=== PATIENT | female | born 1945 | race Caucasian/White ===

== ENCOUNTER 2017-06-29 18:22 | Inpatient (IN) ==
--- OUTSIDE RECORDS SUMMARY | 2017-06-29 18:29 | External Medical Summary | Continuity of Care Document ---
:1945 Demographics Phone Unavailable Preferred Language Unknown Marital Status Unknown Gnosticism Affiliation Unknown Race Unknown Ethnic Group Unknown Author Organization [facility] Allergies There is no data. Medications There is no data. Problems There is no data. Procedures There is no data. Results There is no data. Encounters ACCT No. Visit Discharge Status Pt. Type Provider Facility Loc./Unit Complaint Date/Time [id number] 08/25/2016 [facility] Unknown [id number] 08:17:00 [id number] 06/05/2014 [facility] Unknown [id number] 08:27:00 [id number] 05/22/2013 [facility] Unknown 1111 09:15:00
--- OUTSIDE RECORDS SUMMARY | 2017-06-29 18:29 | External Medical Summary | CCD ---
:1945 Author Name LILYSENDYNICOLLE Address [address], [place] [id number] Care Team Providers Name Role Phone JOSÉ LE Attending Physician Unavailable Vital Signs Unknown or Not Available. Allergies Unknown or Not Available. Procedures Unknown or Not Available. History of Immunizations Unknown or Not Available. Problems Unknown or Not Available. Results Unknown or Not Available. Active Medications Unknown or Not Available. Medications Administered During Visit Unknown or Not Available. Encounters Unknown or Not Available. Social History Smoking Status Code Start Date End Date Current every day [id number] smoker Patient Decision Aids Unknown or Not Available. Discharge Instructions You were admitted to [facility] on 08/11/2016 09:06 You were discharged from [facility] on 08/11/2016 09:06 Should you have any questions prior to discharge, please contact a member of your healthcare team. If you have left the hospital and have any questions, please contact your primary care physician. Chief Complaint and Reason For Visit Chief Complaint Date of Onset MRI SPINE CERV/ LUMBAR Function Status Unknown or Not Available. Plan of Care Unknown or Not Available. Referral/Transition of Care Unknown or Not Available.
[2017-06-29 18:37] VITALS: BMI 29.7
--- NOTE | 2017-06-29 18:38 | History & Physical Report ---
History of Present Illness Date: 06/29/17 Chief complaint: pneumonia HPI: Judit Kimball was accepted in a transfer from [facility] for CAP, COPD exacerbation. She was hospitalized there from 06/26-06/29. CXR showed opacity and collapse in the right base and possibly RML. She was treated with albuterol, pulmicort, IV levaquin x1 day, IV azithro, IV solu-medrol, doxycycline. An abdominal x-ray was unremarkable. A PICC line was inserted into her left upper arm. BC NGTD. On 06/29/17, Na was 136, K 3.6, CO2 27, BUN 16, Cr 0.8, WBC 17.6, hgb 10.2, hct 29, plt 292, d-dimer normal, TSH 0.32, UA neg, H. pylori screen neg. In May, B12 was 751, TSH 1.78. Judit started to feel sick with soreness on Wednesday06/22/17, then the next day she felt achy, fatigued, and thought she had the flu. She doesn't think she had a fever. She was coughing up ugly-looking phlegm. She denies sinus drainage/ congestion. She didn't have a sore throat initially but after breathing treatments it became sore. She denies feeling short of breath or having chest pain or palpitations. She does not use oxygen at home but was started on oxygen in [place]. No dizziness or syncope. She denies leg swelling. Her appetite has been decreased and on Wednesday she had "black coming out of my mouth and my rear" but hasn't had any hematemesis since then. She becomes nauseated with the smell of food. She had a small formed black-colored stool prior to leaving [place]. No problems urinating. She was transferred to [facility] for ongoing care. Review of Systems All systems PM: 10-point ROS was reviewed, no additional remarkable complaints except - Constitutional Constitutional: Present: as per HPI - EENMT Eyes: Present: requires corrective lenses. Absent: change in vision Nose: Present: as per HPI. Absent: allergies Mouth/Throat: Present: as per HPI. Absent: changes in swallowing - Cardiovascular Cardiovascular: Present: as per HPI Vascular: Absent: pedal edema - Respiratory Respiratory: Present: as per HPI - Gastrointestinal Gastrointestinal: Present: as per HPI - Genitourinary Genitourinary: Present: as per HPI - Musculoskeletal Musculoskeletal: Present: as per HPI, back pain - Integumentary/Breasts Integumentary: Absent: rash, wounds - Neurological Neurological: Present: as per HPI, headache(s) (only when neck is painful), numbness (hands/legs). 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 Carpal tunnel repair 1989 Family History: Mother of a massive heart attack at age 59. Judit doesn't know her father. Brother has COPD. Son & daughter are healthy. - Social History Smoking status: Former smoker Packs per day: 1 Packs-years: 44 Quit date: 08/12/15 Substance use type: does not use Alcohol intake frequency: does not drink Household members: spouse (Will - ), other (dog) Current occupational status: retired Previous occupational history: Janitorial Social history: PCP - Dr. Monroe Neuro - Dr. Kala [place] Exam - Constitutional Present: no acute distress, well nourished, well developed - Routine HEENT Exam Head: Present: normocephalic Eye: Present: PERRL. Absent: conjunctival icterus, scleral injection ENT: Present: mucous membranes dry, oropharynx clear - Routine Neck Exam Present: supple. Absent: lymphadenopathy - Routine Respiratory Exam Present: decreased breath sounds (RLL) - Routine Cardiovascular Exam Present: RRR, S1, S2 - Routine Abdominal Exam Present: soft, normoactive bowel sounds, non tender - Routine Extremities Exam Present: no edema, pulses intact - Routine Skin Exam Present: dry, warm - Routine Neurological Exam Present: alert, oriented X3, CN II-XII intact, normal speech - Routine Psychiatric Exam Present: normal affect, normal thought process, cooperative Assessment and Plan (1) CAP (community acquired pneumonia) Current visit: Yes Status: Acute Assessment and Plan: IMPRESSION CAP COPD exacerbation Upper/lower GI bleed Anemia Neck and back pain, chronic, dependent on Tylenol #3 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 CAP, COPD -Rocephin + azithro -DuoNeb -Prednisone 40 mg daily x 5 days -O2 as needed -CBC and CXR in am -leukocytosis in [place] - 17.6 GI bleed -check stool for occult blood -trend H&H; hgb was 10.2 on day of transfer to [facility] -consider surg consult (never had colonoscopy before) -risks: tobacco hx (denies ASA, ibu, EtOH) Chronic pain/neuropathy -oxycodone PRN pain -May need PT/OT consult Code status: full code PCP: Dr. Monroe Discussed with Dr. Palafox. Home meds have not been reconciled or ordered at the time of this H&P GI Prophylaxis: Protonix Resuscitation Status: Full Code - Physician Narrative Narrative: S: Pt reports she feels better then when she first came into the hospital. Reports some sob but denies any cp. Fever at OSH this am. O: Lungs: CTAB without wheezes Cards: RRR without murmurs A/P: Pt seems to be stable clinically. Will change abx coverage to more appropriate CAP coverage. Will add steroids to treat copd exacerbation. Unclear UGI bleed hx but labs and vitals stable. Physician at OSH repoted Hgb has been stable for multiple days. Will do FOBT. Date: 06/29/17 Time: 1833 Hospital Course Summary Disclaimer: The visit summary below is not to be considered part of the above Progress Note. Hospital Course: 06/29/17 19:13 Admitted as transfer from [place]. Dx: CAP, COPD exac, hematemesis and melena. Rocephin and zithromax were started; DuoNeb + Pulmicort ordered. Requiring O2 on admission. Monitor labs, respiratory status closely.
[2017-06-29] MEDS ORDERED: ONDANSETRON 4 MG/2 ML INJECTION IVP PRN (19:06)
[2017-06-29] MEDS ORDERED: Oxycodone *IR* 15 MG TABLET PO PRN (19:07)
[2017-06-29] MEDS ORDERED: AZITHROMYCIN IV 500 MG in NS 250ml 250 ML IV SCH (19:15)
[2017-06-29] MEDS ORDERED: NS FLUSH BAG 500ml IV PRN (19:51)
[2017-06-29] MEDS: SALINE FLUSH 10ml SYRINGE IV PRN ×2 (20:22→20:54)
[2017-06-29] MEDS: CEFTRIAXONE 1 G in NS 100 ML IV SCH (20:22)
[2017-06-29] MEDS: ALBUTEROL/IPRATROPIUM 2.5mg-0.5mg/3ml NEB AEROSOL SCH (20:40)
[2017-06-30] MEDS: ALBUTEROL/IPRATROPIUM 2.5mg-0.5mg/3ml NEB AEROSOL SCH ×4 (03:14→19:15)
[2017-06-30] MEDS: SALINE FLUSH 10ml SYRINGE IV PRN (04:28)
[2017-06-30] MEDS: AZITHROMYCIN 250 MG TABLET PO SCH (06:23)
[2017-06-30] MEDS ORDERED: PredniSONE 20 MG TABLET PO SCH (08:00)
[2017-06-30] MEDS: PANTOPRAZOLE 40 MG INJECTION IVP SCH (08:54)
[2017-06-30] MEDS ORDERED: PNEUMOCOCCAL 13 VACCINE 0.5ml INJECTION IM ONE (09:00)
--- NOTE | 2017-06-30 09:16 | XRay Report ---
Indication: RLL pneumonia PROCEDURE: XR chest 1V: Encounter: Initial Comparison: None Findings: Airspace consolidation in the right lower lobe with a small right effusion. Trace left effusion. Upper lung crain are clear. No pneumothorax. Left PICC line in place with the tip projecting over the lower SVC. Overlying monitoring leads. Heart size and mediastinal contours are within normal limits. Pulmonary vascularity appears normal. Impression: Right lower lobe pneumonia or aspiration with associated effusion. .
[2017-06-30] MEDS: BUDESONIDE INH.SOLN 0.5mg/2ml NEB AEROSOL SCH ×2 (09:20→19:00)
[2017-06-30] MEDS ORDERED: Oxycodone *IR* 5 MG TABLET PO PRN (10:21)
[2017-06-30] MEDS ORDERED: PNEUMOCOCCAL VAC ADMIN CHARGE INJ ONE (10:21)
--- NOTE | 2017-06-30 10:34 | CT Scan Report ---
Indication: pna not improving PROCEDURE: CT chest wo con: Encounter: Initial Comparison: Chest x-ray from yesterday Technique: Axial CT images were performed through the chest without intravenous contrast. Coronal and sagittal two-dimensional reformats. Automated Exposure Control and Iterative Reconstruction dose reducing techniques were utilized. Findings: Moderate emphysema. Dense consolidation of the right lower lobe with air bronchograms and bronchiectasis. Trace atelectasis in the dependent left lower lobe. No pneumothorax. No discrete pulmonary nodules or masses. Small right pleural effusion. The central airways show evidence of an endobronchial lesion occluding the right lower lobe bronchus just below the take off of the bronchus intermedius on axial image #29. This extends over a segment of approximately 1.4 cm craniocaudally measured on the sagittal plane reconstructions. No axillary adenopathy. There are enlarged right paratracheal lymph nodes. [employer] Helper node on image #21 measures 1.2 cm in short axis. Additional node on image #28 measuring 1.2 cm in short axis. Heart size is normal. No pericardial effusion. Left-sided PICC line in place with the tip terminating in the lower SVC. The upper abdomen shows no acute findings. No lytic or blastic osseous lesions appreciated. Impression: Endobronchial lesion occluding the right lower lobe bronchi with postobstructive atelectasis and pneumonia. There is associated small right effusion. A neoplastic etiology is suspected given the degree of bronchiectasis present this suggests a long-standing process rather than acute obstruction due to a mucous plug. Mediastinal adenopathy could be metastatic or reactive. Bronchoscopy is recommended for further evaluation. .
[2017-06-30] MEDS: APAP/CODEINE 300 MG/30 MG TABLET PO PRN ×2 (10:36→18:24)
--- NOTE | 2017-06-30 14:09 | Pulmonology Consult Note ---
<Genie Portillo Matthew - Last Filed: 06/30/17 15:33> History of Present Illness Consult date: 06/30/17 Reason for consult: pneumonia, abnormal CXR/CT Chief complaint: generalized fatigue History of present illness: This is a 71 yo female who states she has noticed some SOB with activity for a while. Uses an albuterol HFA prn but has never been diagnosed with COPD, has a 75 pyh. Apparently last Wednesday she started having increased fatigue n/v of "black" fluid and was taken to the [facility] and was treated for CAP, COPD exacerbation on 06/26. CXR showed opacity and collapse in the right base and possibly RML. She was started on albuterol, pulmicort, IV levaquin x1 day, IV azithro, IV solu-medrol, doxycycline and BC NGTD. She was transferred to [facility] for further evaluation and treatment yesterday. WBC 22.7 today without bands, afebrile, CXR yesterday still showed RLL infiltrate. Secondary to the CXR a CT was ordered which showed RLL endobronchial mass with post obstructive pna. We have been consulted for her abnormal CT scan and appreciate the consult. Review of Systems - Constitutional Constitutional: Present: chills, fatigue, night sweats - Cardiovascular Cardiovascular: Present: dyspnea on exertion - Respiratory Respiratory: Present: cough, chest congestion - Gastrointestinal Gastrointestinal: Present: as per HPI - Musculoskeletal Musculoskeletal: Present: as per HPI - Integumentary/Breasts Integumentary: Present: as per HPI - Neurological Neurological: Present: as per HPI - Psychiatric Psychiatric: Present: as per HPI - Endocrine Endocrine: Present: as per HPI - Hematologic/Lymphatic Hematologic/Lymphatic: Present: as per HPI - Allergic/Immunologic Allergic/Immunologic: Present: as per HPI PFSH Patient Stated Medical History Peripheral Neuropathy Yes Heart Murmur Yes Rheumatic Fever Yes Pneumonia Yes Hx Incontinence Yes Osteoarthritis Yes Shingles Yes: When in her 20's Surgical History: Hysterectomy 1989. Carpal tunnel repair 1989 - Social History Smoking status: Former smoker Packs per day: 1.5 Packs-years: 50 Current residence: Apartment/Private Home Medications Home Medications Medication Instructions Recorded Confirmed Type APAP/Codeine 300/30 (#3) [Tylenol 2 tab PO Q4HPRN PRN 06/29/17 06/29/17 History with Codeine #3 (300/30)] Albuterol HFA Inhaler [Ventolin 06/29/17 History Hfa 90 mcg/actuation] Cholecalciferol (Vitamin D3) 2 tab PO DAILY 06/29/17 06/29/17 History [Vitamin D3] Estradiol [Estrace] 0.25 mg PO DAILY 06/29/17 06/29/17 History Gabapentin [Gabapentin] 300 mg PO TID 06/29/17 06/29/17 History Allergies Allergy/AdvReac Type Severity Reaction Status Date / Time Penicillins Allergy Hives Verified 06/29/17 19:51 Exam Vital signs: Temperature 96.7 F L 06/30/17 11:05 Pulse Rate 102 H 06/30/17 11:05 Respiratory Rate 18 06/30/17 11:05 Blood Pressure 125/65 06/30/17 11:05 Pulse Oximetry 93 06/30/17 11:05 - Constitutional no acute distress - Routine HEENT Exam Head: Present: normocephalic, atraumatic Eye: Present: EOMI, PERRL ENT: Present: mucous membranes moist - Routine Neck Exam Present: supple - Routine Respiratory Exam Present: decreased breath sounds Comments: Diminished RLL - Routine Cardiovascular Exam Present: RRR, S1, S2, no murmur - Routine Abdominal Exam Present: soft, normoactive bowel sounds - Routine Back/Spine/Pelvis Exam Back/Spine: Present: full ROM - Routine Skin Exam Present: intact, dry - Routine Neurological Exam Present: alert, oriented X3, CN II-XII intact - Routine Psychiatric Exam Present: normal affect, normal thought process Results - Laboratory Findings CBC and BMP: 06/30/17 04:24 06/30/17 04:24 Abnormal lab findings: Abnormal Labs 06/30/17 06/30/17 04:24 04:24 WBC 22.7 H RBC 3.40 L Hgb 10.5 L Hct 33.2 L Neutrophils % (Manual) 75.0 H Lymphocytes % (Manual) 9.0 L Monocytes % (Manual) 10.0 H Neutrophils # (Manual) 17.0 H Monocytes # (Manual) 2.3 H Carbon Dioxide 31 H Calcium 7.8 L AST 68 H ALT 74 H Total Protein 5.9 L Albumin 2.9 L Albumin/Globulin Ratio 1.0 L - Diagnostic Findings Chest x-ray: image reviewed (as noted in HPI) CT scan - chest: image reviewed (as noted in HPI) Assessment and Plan - Assessment and Plan Abnormal CT RLL mass Post obstructive pna COPD exacerbation Plan: Pt currently on O2 at 3L per [place] and tolerating, no O2 at home. Cont on BT's with pulmicort BID and a/a q6, prednisone 40mg.On azithro and rocephin for CAP, may benefit from levaquin for post obstructive pna. Afebrile, WBC 17.6>22.7 today. Will try to set up for bronchoscopy tomorrow with BAL and Bx - Time Spent With Patient Total time spent is greater than 50% in coordination of care (as documented) at patient's floor/unit and/or counseling patient: 25 - 35 minutes <Aldo Salgado - Last Filed: 07/01/17 12:48> [facility] Patient Stated Medical History Peripheral Neuropathy Yes Heart Murmur Yes Rheumatic Fever Yes Pneumonia Yes Hx Incontinence Yes Osteoarthritis Yes Shingles Yes: When in her 20's Exam Vital signs: Temperature 97.6 F 07/01/17 11:23 Pulse Rate 102 H 07/01/17 11:23 Respiratory Rate 20 07/01/17 11:23 Blood Pressure 122/72 07/01/17 11:23 Pulse Oximetry 92 07/01/17 11:23 Results - Laboratory Findings CBC and BMP: 07/01/17 04:20 07/01/17 04:20 Abnormal lab findings: Abnormal Labs 06/30/17 06/30/17 06/30/17 04:24 04:24 14:20 WBC 22.7 H RBC 3.40 L Hgb 10.5 L Hct 33.2 L MPV Neutrophils % (Manual) 75.0 H Lymphocytes % (Manual) 9.0 L Monocytes % (Manual) 10.0 H Metamyelocytes % Myelocytes % Neutrophils # (Manual) 17.0 H Monocytes # (Manual) 2.3 H Potassium Carbon Dioxide 31 H Calcium 7.8 L AST 68 H ALT 74 H Total Protein 5.9 L Albumin 2.9 L Albumin/Globulin Ratio 1.0 L Stool Occult Blood Positive A 07/01/17 07/01/17 04:20 04:20 WBC 19.9 H RBC 3.15 L Hgb 9.8 L Hct 30.7 L MPV 9.1 L Neutrophils % (Manual) 76.0 H Lymphocytes % (Manual) 13.0 L Monocytes % (Manual) Metamyelocytes % 1.0 H Myelocytes % 2.0 H Neutrophils # (Manual) 15.1 H Monocytes # (Manual) Potassium 3.5 L Carbon Dioxide 33 H Calcium 7.5 L AST ALT 57 H Total Protein 5.7 L Albumin 2.6 L Albumin/Globulin Ratio 0.8 L Stool Occult Blood - Diagnostic Findings Chest x-ray: image reviewed CT scan - chest: image reviewed Assessment and Plan (1) Abnormal finding on lung imaging Status: Acute Assessment and plan: right hilar mass and obstruction on CT chest. Could not rule out the possibility of endobronchial tumor. Recommend bronchoscopy with BAL, [place], Endobronchial biopsies if indicated. Current Visit: Yes (2) Pneumonia Status: Acute Assessment and plan: empiric antibiotics are appropriate. We will send BAL fluid for micro to obtain better culture data Current Visit: Yes (3) COPD (chronic obstructive pulmonary disease) Status: Acute Assessment and plan: recommend nebulized bronchodilators. O2 to keep sat >90%. Recommend OP PFT Current Visit: Yes - Time Spent With Patient Total time spent is greater than 50% in coordination of care (as documented) at patient's floor/unit and/or counseling patient:
--- NOTE | 2017-06-30 16:11 | Progress Note ---
- Date 06/30/17 Subjective: Patient is seen today sitting in bed. She states she is feeling better today. She is still requiring O2, but doesn't feel SOA and cough is better. She has had a formed black stool today and reports they did "testing" on it. No lightheadedness/dizziness. Appetite is good. Objective Vital signs: Temperature 96.9 F 06/30/17 15:48 Pulse Rate 98 06/30/17 15:48 Respiratory Rate 18 06/30/17 15:48 Blood Pressure 115/65 06/30/17 15:48 Pulse Oximetry 90 06/30/17 15:48 Height/Weight/BMI: Height 1.55 m Weight 71.8 kg Body Mass Index 29.7 - Constitutional Present: no acute distress, well nourished, well developed - Routine HEENT Exam Head: Present: normocephalic - Routine Respiratory Exam Present: CTA bilaterally (decreased BS's R base). Absent: wheezes - Routine Cardiovascular Exam Present: RRR. Absent: murmur - Routine Abdominal Exam Present: soft, normoactive bowel sounds, non distended. Absent: tenderness - Routine Extremities Exam Present: no edema, normal capillary refill - Routine Skin Exam Present: dry, warm - Routine Neurological Exam Present: alert, oriented X3 - Routine Lymphatic Exam Lymphatic: Absent: adenopathy - Routine Psychiatric Exam Present: normal affect, cooperative Results - Labs CBC & Chem 7: 06/30/17 04:24 06/30/17 04:24 Labs: + hemoccult Laboratory Tests 06/30/17 04:24 AST 68 H ALT 74 H - Imaging and Cardiology CT scan - chest Additional comments: Date of Exam: 06/30/17 Indication: pna not improving PROCEDURE: CT chest wo con: Findings: Moderate emphysema. Dense consolidation of the right lower lobe with air bronchograms and bronchiectasis. Trace atelectasis in the dependent left lower lobe. No pneumothorax. No discrete pulmonary nodules or masses. Small right pleural effusion. The central airways show evidence of an endobronchial lesion occluding the right lower lobe bronchus just below the take off of the bronchus intermedius on axial image #29. This extends over a segment of approximately 1.4 cm craniocaudally measured on the sagittal plane reconstructions. No axillary adenopathy. There are enlarged right paratracheal lymph nodes. Director Center node on image #21 measures 1.2 cm in short axis. Additional node on image #28 measuring 1.2 cm in short axis. Heart size is normal. No pericardial effusion. Left-sided PICC line in place with the tip terminating in the lower SVC. The upper abdomen shows no acute findings. No lytic or blastic osseous lesions appreciated. Impression: Endobronchial lesion occluding the right lower lobe bronchi with postobstructive atelectasis and pneumonia. There is associated small right effusion. A neoplastic etiology is suspected given the degree of bronchiectasis present this suggests a long-standing process rather than acute obstruction due to a mucous plug. Mediastinal adenopathy could be metastatic or reactive. Bronchoscopy is recommended for further evaluation. 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 DuoNeb -WBC 17.6-->22.7 RLL mass -pulm consulted - may do bronch with bx tomorrow -Dr. Palafox to discuss with patient - I did not discuss with pt at my visit with her -Per pulm-consider Levaquin based on CT findings GI bleed -+FOBT today. Hold Prednisone. -trend H&H; hgb 10.2-->10.5 Stable -consider surg consult (never had colonoscopy before) -risks: tobacco hx (denies ASA, ibu, EtOH) Chronic pain/neuropathy -oxycodone PRN pain -PT/OT consult Elevated LFT's -CMP in am - Physician Narrative Narrative: S: Pt reports doing better. Reports stable sob and denies any f/c, n/v/d, cp. O: Lungs: decreased breaths sounds in right lower lobe A/P: CT was done because pna was suspicious for atypical etiology and CT found RLL mass. Pulm was consulted and plans on bronch tomorrow. Pts WBC increased likely due to steroid use. Pt does seem to have mild UGI bleed. Hgb has been stable at OSH and here. Likely this can be followed up as outpatient. Will d/c steroid d/ t UGI bleed. Case discussed with AIRPLANE COVERER/PA and agree with plan above. Pt was seen and evaluated independently. Date: 06/30/17 Time: 1605 Hospital Course Summary Disclaimer: The visit summary below is not to be considered part of the above Progress Note. Hospital Course: 06/29/17 19:13 Admitted as transfer from [place]. Dx: CAP, COPD exac, hematemesis and melena. Rocephin and zithromax were started; DuoNeb + Pulmicort ordered. Requiring O2 on admission. Monitor labs, respiratory status closely. 06/30/17 16:[address] chest - RLL endobronchial lesion - possible bronch with bx tomorrow + FOBT - hgb stable. Hold Prednisone. Elevated LFT's - follow
[2017-06-30] MEDS: GABAPENTIN 300 MG CAPSULE PO SCH ×2 (16:42→20:04)
[2017-06-30] MEDS: CEFTRIAXONE 1 G in NS 100 ML IV SCH (18:25)
[2017-07-01] MEDS: ALBUTEROL/IPRATROPIUM 2.5mg-0.5mg/3ml NEB AEROSOL SCH ×4 (01:15→19:35)
[2017-07-01] MEDS: APAP/CODEINE 300 MG/30 MG TABLET PO PRN ×2 (05:18→14:51)
[2017-07-01] MEDS: AZITHROMYCIN 250 MG TABLET PO SCH (05:30)
[2017-07-01] MEDS: BUDESONIDE INH.SOLN 0.5mg/2ml NEB AEROSOL SCH ×2 (09:06→19:35)
--- NOTE | 2017-07-01 09:43 | Progress Note ---
- Date 07/01/17 Subjective: Patient is seen in her room this morning. She states she continues to feel well. She states she was able to go to the bathroom completely by herself this morning. She is feeling stronger. She has no shortness of breath. She only coughs after breathing treatments. She is still requiring 3 L of oxygen. She is currently NPO for her bronchoscopy today. Objective Vital signs: Temperature 97.4 F 07/01/17 07:50 Pulse Rate 100 07/01/17 07:50 Respiratory Rate 14 07/01/17 09:08 Blood Pressure 125/69 07/01/17 07:50 Pulse Oximetry 93 07/01/17 09:08 Height/Weight/BMI: Height 1.55 m Weight 73.2 kg Body Mass Index 29.7 - Constitutional Present: no acute distress, well nourished, well developed - Routine Respiratory Exam Present: decreased breath sounds (right lower lobe), CTA bilaterally. Absent: wheezes - Routine Cardiovascular Exam Present: RRR. Absent: murmur - Routine Abdominal Exam Present: soft, normoactive bowel sounds, non distended. Absent: tenderness - Routine Extremities Exam Present: no edema, normal capillary refill - Routine Skin Exam Present: dry, warm - Routine Neurological Exam Present: alert, oriented X3, CN II-XII intact - Routine Lymphatic Exam Lymphatic: Absent: adenopathy - Routine Psychiatric Exam Present: normal affect, cooperative Results - Labs CBC & Chem 7: 07/01/17 04:20 07/01/17 04:20 Assessment and Plan (1) CAP (community acquired pneumonia) Current visit: Yes Status: Acute Assessment and Plan: IMPRESSION CAP RLL endobronchial lesion (found on CT 06/30/17) COPD exacerbation Upper/lower GI bleed Anemia Neck and back pain, chronic, dependent on Tylenol #3 Idiopathic neuropathy affecting both hands and both legs Hypokalemia - not POA PLAN CAP, COPD -continue Rocephin + azithro -3L O2. DuoNeb -WBC 17.6-->22.7-->19.9 RLL mass -pulm consulted - bronch with bx today GI bleed -+FOBT yesterday. Prednisone put on hold yesterday. -trend H&H; hgb 10.2-->10.5-->9.8 -consider surg consult (never had colonoscopy before) -risks: tobacco hx (denies ASA, ibu, EtOH) Chronic pain/neuropathy -oxycodone PRN pain Hypokalemia -potassium 3.5 today -KCl 40mEq x 1 po now -CMP in am - Physician Narrative Narrative: S: Pt report she's is feeling better. SOB has improved as well as cough. Denies any f/c, n/v/d. O: Cards: RRR without murmurs Lungs: decreased breath sounds in RLL A/P: Plan for bronch today with BAL and tissue biopsy. Cont. abx tx as pt seems to be improving. Monitor Hgb as it seems to be fairly stable, will need EGD/ colonoscopy as outpatient. Date: 07/01/17 Time: 183 Hospital Course Summary Disclaimer: The visit summary below is not to be considered part of the above Progress Note. Hospital Course: 06/29/17 19:13 Admitted as transfer from [place]. Dx: CAP, COPD exac, hematemesis and melena. Rocephin and zithromax were started; DuoNeb + Pulmicort ordered. Requiring O2 on admission. Monitor labs, respiratory status closely. 06/30/17 16:[address] chest - RLL endobronchial lesion - possible bronch with bx tomorrow + FOBT - hgb stable. Hold Prednisone. Elevated LFT's - follow 07/01/17 Bronch today. 3L O2. Hgb 10.5-->9.8 LFT's improved. Potassium 3.5 - 40mEq po given x1
[2017-07-01] MEDS: PANTOPRAZOLE 40 MG INJECTION IVP SCH (10:31)
[2017-07-01] MEDS ORDERED: NS 1,000 ML IV SCH (12:45)
[2017-07-01] MEDS: SALINE FLUSH 10ml SYRINGE IV PRN (12:55)
[2017-07-01] MEDS ORDERED: LIDOCAINE 4% Laryng-O-Jet (160mg/4mL) KIT MM ONE (13:04)
[2017-07-01] MEDS ORDERED: MIDAZOLAM 2mg/2ml INJECTION ONE (13:10)
[2017-07-01] MEDS ORDERED: GLYCOPYRROLATE 0.4 MG/2 ML INJECTION ONE (13:10)
[2017-07-01] MEDS ORDERED: KETAMINE 500 MG/10 ML INJECTION ONE (13:10)
[2017-07-01] MEDS ORDERED: FentaNYL 100 MCG/2 ML INJECTION ONE (13:10)
[2017-07-01] MEDS ORDERED: PROPOFOL 500 MG/50 ML VIAL IV ONE (13:13)
--- NOTE | 2017-07-01 13:16 | Anesthesia Preoperative Report ---
Anesthesia Preoperative Record - Date and Time Date: 07/01/17 Preoperative Diagnosis: COPD due to pneumonia NPO Since Date: 06/30/17 NPO Since Time: 00:00 Allergies/Adverse Reactions: Allergies Allergy/AdvReac Type Severity Reaction Status Date / Time Penicillins Allergy Hives Verified 06/29/17 19:51 - Vital Signs Vital Signs: Temperature 97.3 F 07/01/17 12:47 Pulse Rate 108 H 07/01/17 12:49 Respiratory Rate 20 07/01/17 12:47 Blood Pressure 130/60 07/01/17 12:47 Pulse Oximetry 92 07/01/17 12:47 Height and Weight: Height 1.55 m Weight 73.2 kg Body Mass Index 29.7 - Medications Inpatient Medications: Current Medications Acetaminophen/Codeine Phosphate (Tylenol With Codeine #3 (300/30)) 2 tab PO Q8HPRN PRN PRN Reason: Pain Last Admin: 07/01/17 05:18 Dose: 2 tab Albuterol/Ipratropium (Duoneb) 3 ml AEROSOL Q6H [facility] Last Admin: 07/01/17 09:06 Dose: 3 ml Azithromycin (Zithromax Eq.) 250 mg PO ACB [facility] Last Admin: 07/01/17 05:30 Dose: 250 mg Budesonide (Pulmicort Inhalation) 0.5 mg AEROSOL RTBID [facility] Last Admin: 07/01/17 09:06 Dose: 0.5 mg Cholecalciferol (Vit. D-3) 2,000 unit PO DAILY [facility] Estradiol (Estrace) 0.25 mg PO DAILY [facility] Gabapentin (Neurontin) 300 mg PO TID [facility] Last Admin: 06/30/17 20:04 Dose: 300 mg Ceftriaxone Sodium 1 g/ Sodium (Chloride) 100 mls @ 200 mls/hr IV Q24H [facility] Last Infusion: 06/30/17 18:55 Dose: Infused Sodium Chloride (Normal Saline) 1,000 mls @ 100 mls/hr IV .Q10H [facility] Last Admin: 07/01/17 12:49 Dose: 100 mls/hr Ondansetron HCl (Zofran) 4 mg IVP Q6H PRN PRN Reason: Nausea &/or vomiting Oxycodone HCl (Roxicodone *Ir*) 5 - 15 mg PO Q4H PRN PRN Reason: Pain Pantoprazole Sodium (Protonix Iv) 40 mg IVP DAILY [facility] Last Admin: 07/01/17 10:31 Dose: 40 mg Sodium Chloride (Normal Saline) 500 ml IV PRN PRN Last Admin: 06/29/17 20:28 Dose: 500 ml Sodium Chloride (Iv Flush) 10 - 80 ml IV PRN PRN PRN Reason: Flushing Last Admin: 07/01/17 12:55 Dose: 10 ml Home Medications: Home Medications Medication Instructions Recorded Confirmed Type APAP/Codeine 300/30 (#3) [Tylenol 2 tab PO Q4HPRN PRN 06/29/17 06/29/17 History with Codeine #3 (300/30)] Albuterol HFA Inhaler [Ventolin 06/29/17 History Hfa 90 mcg/actuation] Cholecalciferol (Vitamin D3) 2 tab PO DAILY 06/29/17 06/29/17 History [Vitamin D3] Estradiol [Estrace] 0.25 mg PO DAILY 06/29/17 06/29/17 History Gabapentin [Gabapentin] 300 mg PO TID 06/29/17 06/29/17 History - Medical History Respiratory: Reports: Asthma, Pneumonia, Other (acute respiratory failure) DENIES: Sleep Apnea Cardiovascular: Reports: Heart Murmur, Rheumatic Fever Neuro/Musculoskeletal: Reports: HX.MS.OSAR, Other (peripheral neuropathy) Renal/Endocrine: Reports: Weight Gain (Quit smoking in April 2016) - Surgical History HEENT Surgeries: Reports: Tonsillectomy GI Surgery/Treatments: Reports: Appendectomy Musculoskeletal Surgery/Tx: Reports: Carpal Tunnel Release Reproductive Surgery/Treatment: Reports: Hysterectomy, Oophorectomy, Salpingectomy Anesthesia Reactions: None Hx Family Anesthesia Reaction: No History of Motion Sickness: No - Social History Smoking Status: Former smoker Packs per day: 1.5 Pack-years: 50 Hx Chewing Tobacco Use: No Second Hand Exposure: No Quit Date: 08/12/15 Substance Use Type: does not use Alcohol Intake Frequency: does not drink - Pertinent Findings Laboratory: CBC and BMP 07/01/17 04:20 07/01/17 04:20 BMP 07/01/17 04:20 Sodium 140 Potassium 3.5 L Chloride 102 Carbon Dioxide 33 H BUN 15.0 Creatinine 0.7 Glucose 99 Calcium 7.5 L Liver Function 12/21/17 Range/Units 04:20 Total Bilirubin 0.30 (0.20-1.30) MG/DL AST 33 D (14-36) U/L ALT 57 H (9-52) U/L Alkaline Phosphatase 61 (38-126) U/L Albumin 2.6 L (3.5-5.0) G/DL EKG: Sinus Tachycardia - Physical Exam Respiratory Exam: Present: wheezing, bilateral breath sounds equal Cardiovascular Exam: Present: regular rate and rhythm - Airway Assessment Mallampati Score: II TMD: 3 Fingerbreadths Neck Extension: fair Overall Assessment: no airway concerns - ASA ASA Score: 3 - Plan Anesthesia: General TIVA - Discussion Discussion: Discussed risks/options/alternatives of anesthesia and questions answered. Patient consents. Nursing pain assessment noted. Attestation Statement: Prior to the delivery of any anesthetic medication, I examined the patient, developed the plan, obtained the patient's consent and discussed the risk and benefits of the procedure with the patient/guardian. - Additional Information Seen by Anesthesia: Yes
[2017-07-01] MEDS ORDERED: LIDOCAINE VISCOUS 2% ORAL LIQUID 15ml ONE (13:23)
[2017-07-01] MEDS ORDERED: ALBUTEROL 2.5mg/3ml (0.083%) NEB AEROSOL ONE (13:48)
[2017-07-01] MEDS: GABAPENTIN 300 MG CAPSULE PO SCH ×3 (13:49→21:38)
--- NOTE | 2017-07-01 13:52 | Anesthesia Postoperative Note ---
- Date and Time Date: 07/01/17 Time: 13:52 - Status Patient Participated in Evaluation: Patient Participated in Person Vital Signs: Temperature 97.3 F 07/01/17 12:47 Pulse Rate 108 H 07/01/17 12:49 Respiratory Rate 20 07/01/17 12:47 Blood Pressure 130/60 07/01/17 12:47 Pulse Oximetry 92 07/01/17 12:47 Respiratory Function: Airway Patent, Regular Respirations Cardiovascular Function: Regular Pulse EKG: Sinus Tachycardia Mental Status: Alert and Oriented Pain Intensity: 0 Hydration: IV Infusing Complications During Recover: None Apparent Post Anesthesia Care Notes: breathing treatment in recovery room - Follow-Up Instructions Instructions: Per Surgeon
--- NOTE | 2017-07-01 14:09 | Procedure Note ---
Date of procedure: 07/01/17 Pre-op diagnosis: lung mass possible cancer Post-op diagnosis: same Procedure: bronchoscopy Patient underwent conscious sedation. The fiberoptic bronchoscope was inserted via the mouth to carefully view the larynx. The larynx was normal in appearance. The scope was passed into the trache. The trachea was normal. The scope was passed to the left main, HIRA, LLL bronchi. Moderate white mucus secretions were present. No endobronchial lesions were noted. The scope was passed to the right main bronchus. In the distal right main bronchus, completely obstructing the RLL bronchus was a polypoid structure. The tissue was friable and hemorrhagic and the surround mucosa was inflamed and friable as well. This was consistent with endobronchial obstruction from tumor. Endobronchial biopsies were performed and the large polypoid structure was completely removed and sent for path. The remaining mucosa was very friable and inflamed. There was suggestion that this was some kind of aspirated object that lodged in the distal right main bronchus and caused obstruction and severe local inflammatory reaction. Cytology brushings and BAL were performed and sent for appropriate studies. Surgeon: Aldo Salgado MD Estimated blood loss (mL): 5 Pathology: other (endobronchial biopsies) Condition: Stable Disposition: floor
[2017-07-01] MEDS: ESTRADIOL 0.5 MG TABLET PO SCH (14:43)
[2017-07-01] MEDS: CEFTRIAXONE 1 G in NS 100 ML IV SCH (18:47)
[2017-07-01] MEDS ORDERED: FALL RISK - PHARMACY CONSULT MC ONE (23:15)
[2017-07-02] MEDS: APAP/CODEINE 300 MG/30 MG TABLET PO PRN ×3 (00:46→20:59)
[2017-07-02] MEDS: ALBUTEROL/IPRATROPIUM 2.5mg-0.5mg/3ml NEB AEROSOL SCH ×4 (02:10→20:20)
[2017-07-02] MEDS: AZITHROMYCIN 250 MG TABLET PO SCH (06:20)
[2017-07-02] MEDS: BUDESONIDE INH.SOLN 0.5mg/2ml NEB AEROSOL SCH ×2 (07:31→20:20)
[2017-07-02] MEDS: SALINE FLUSH 10ml SYRINGE IV PRN (09:19)
[2017-07-02] MEDS: ESTRADIOL 0.5 MG TABLET PO SCH (09:20)
[2017-07-02] MEDS: GABAPENTIN 300 MG CAPSULE PO SCH ×3 (09:20→20:59)
[2017-07-02] MEDS: PANTOPRAZOLE 40 MG INJECTION IVP SCH (09:21)
--- NOTE | 2017-07-02 10:24 | Pulmonology Progress Note ---
Subjective Principal diagnosis: pna Interval history: Pt sitting up in bed, states no SOB noted, + cough with minimal sputum noted at this time. States she feels good and wanting to go home for [place]. Exam Vital signs: Temperature 96.9 F 07/02/17 08:06 Pulse Rate 93 07/02/17 08:06 Respiratory Rate 16 07/02/17 07:32 Blood Pressure 121/69 07/02/17 08:06 Pulse Oximetry 90 07/02/17 08:06 - Constitutional no acute distress, average body habitus - Routine HEENT Exam Head: Present: normocephalic, atraumatic Eye: Present: EOMI, PERRL - Routine Neck Exam Present: supple, full ROM - Routine Respiratory Exam Present: decreased breath sounds Comments: RLL decreased - Routine Cardiovascular Exam Present: RRR, S1, S2, no murmur - Routine Abdominal Exam Present: soft, normoactive bowel sounds - Routine Extremities Exam Present: no edema, full ROM - Routine Back/Spine/Pelvis Exam Back/Spine: Present: full ROM - Routine Skin Exam Present: intact, dry - Routine Neurological Exam Present: alert, oriented X3, CN II-XII intact - Routine Psychiatric Exam Present: normal affect, normal thought process Assessment and Plan - Assessment and Plan Abnormal CT RLL mass - per Bronch: polypoid structure completely obstructing the RLL bronchus Post obstructive pna COPD exacerbation Plan: Pt currently on O2 at 4L per NC and tolerating, no O2 at home. Cont on BT's with pulmicort BID and a/a q6, prednisone 40mg. On azithro and rocephin for CAP , may benefit from levaquin for post obstructive pna. Afebrile, WBC improving, bronch cx's with prelim growth and GPC noted per stain, cont to follow. RLL bronchial mass noted, sent for Bx, if dismisses over the weekend will need to follow up OP for bronch results. Will need Ex Ox prior to discharge as she doesn 't have O2 at home. - Time Spent With Patient Total time spent is greater than 50% in coordination of care (as documented) at patient's floor/unit and/or counseling patient: less than 15 minutes
--- NOTE | 2017-07-02 12:08 | Progress Note ---
- Date 07/02/17 Subjective: Patient is seen in her bed. States she is feeling ok. She only coughs after breathing txs. No SOA. Wants to go home. Appetite is fair. Bowels are moving. Objective Vital signs: Temperature 97.8 F 07/02/17 11:56 Pulse Rate 106 H 07/02/17 11:56 Respiratory Rate 18 07/02/17 11:56 Blood Pressure 93/54 07/02/17 11:56 Pulse Oximetry 93 07/02/17 11:56 Height/Weight/BMI: Height 1.55 m Weight 70.9 kg Body Mass Index 29.7 - Constitutional Present: no acute distress, well nourished, well developed - Routine HEENT Exam Head: Present: normocephalic, atraumatic - Routine Respiratory Exam Present: decreased breath sounds (RLL), CTA bilaterally. Absent: wheezes - Routine Cardiovascular Exam Present: RRR. Absent: murmur - Routine Abdominal Exam Present: soft, normoactive bowel sounds, non distended. Absent: tenderness - Routine Extremities Exam Present: no edema, normal capillary refill - Routine Skin Exam Present: dry, warm - Routine Neurological Exam Present: alert, oriented X3 - Routine Lymphatic Exam Lymphatic: Absent: adenopathy - Routine Psychiatric Exam Present: normal affect, cooperative Results - Labs CBC & Chem 7: 07/02/17 04:37 07/02/17 04:37 Microbiology Results: Microbiology 07/01/17 13:28 Bronch [place], Right Lower Lobe Gram Stain - Final 07/01/17 13:28 Bronch [place], Right Lower Lobe Bronchial Aspirate Culture - Preliminary Early growth Assessment and Plan (1) CAP (community acquired pneumonia) Current visit: Yes Status: Acute Assessment and Plan: IMPRESSION CAP RLL endobronchial lesion (found on CT 06/30/17) COPD exacerbation Upper/lower GI bleed Anemia Neck and back pain, chronic, dependent on Tylenol #3 Idiopathic neuropathy affecting both hands and both legs Hypokalemia - not POA PLAN CAP, COPD -Had fever overnight -continue Rocephin + azithro. Dr Palafox will determine change/addition of antimicrobial coverage -Currently on 4L O2. Will need to do exercise oximetry prior to DC for home O2. -WBC 17.6-->22.7-->19.9-->16.6 RLL mass -bronchial path pending GI bleed -trend H&H; hgb 10.2-->10.5-->9.8-->9.5 -consider surg consult (never had colonoscopy before) - can work-up OP -risks: tobacco hx (denies ASA, ibu, EtOH) Chronic pain/neuropathy -oxycodone PRN pain - Physician Narrative Narrative: S: Pt reports she feels good. Denies any n/v/d, cp or sob. Pt did have a fever overnight. She would really like to go home soon. O: Cards: RRR without murmurs Lungs: decreased lung sounds in RLL A/P: Pt s/p bronch, gram stain now showing much, will await cx's before changing abx. Overall pt doing well but she still had a fever overnight so unclear if abx is appropriate and pna just difficult to treat because of obstruction or if we are missing abx coverage. Will cont. to monitor. Date: 07/02/17 Time: 1545 Hospital Course Summary Disclaimer: The visit summary below is not to be considered part of the above Progress Note. Hospital Course: 06/29/17 19:13 Admitted as transfer from [place]. Dx: CAP, COPD exac, hematemesis and melena. Rocephin and zithromax were started; DuoNeb + Pulmicort ordered. Requiring O2 on admission. Monitor labs, respiratory status closely. 06/30/17 16:[address] chest - RLL endobronchial lesion - possible bronch with bx tomorrow + FOBT - hgb stable. Hold Prednisone. Elevated LFT's - follow 07/01/17 Bronch today. 3L O2. Hgb 10.5-->9.8 LFT's improved. Potassium 3.5 - 40mEq po given x1 07/02/17 Bronch results pending Hgb stable - gradual, slight decline Fever overnight - may add/change atbx
[2017-07-02] MEDS: CEFTRIAXONE 1 G in NS 100 ML IV SCH (20:52)
[2017-07-03] MEDS: ALBUTEROL/IPRATROPIUM 2.5mg-0.5mg/3ml NEB AEROSOL SCH ×3 (02:15→13:00)
[2017-07-03] MEDS: AZITHROMYCIN 250 MG TABLET PO SCH (05:38)
[2017-07-03] MEDS: APAP/CODEINE 300 MG/30 MG TABLET PO PRN ×2 (05:38→13:44)
[2017-07-03] MEDS: BUDESONIDE INH.SOLN 0.5mg/2ml NEB AEROSOL SCH (07:40)
[2017-07-03] MEDS: ESTRADIOL 0.5 MG TABLET PO SCH (08:42)
[2017-07-03] MEDS: GABAPENTIN 300 MG CAPSULE PO SCH ×2 (08:42→16:28)
[2017-07-03] MEDS: PANTOPRAZOLE 40 MG INJECTION IVP SCH (08:42)
--- NOTE | 2017-07-03 11:34 | Discharge Summary ---
Discharge Information Date of admission: 06/29/17 18:22 Anticipated date of discharge: 07/03/17 Attending Physician: Opal Palafox MD Primary care physician: Orville Monroe MD Consults: 06/30/17 12:53 Physician Consult [CONS] Routine Consulting Provider: Aldo Salgado Reason For Exam: lung mass Ordering Provider has Notified Director Customer: Yes - Discharge Diagnosis (1) CAP (community acquired pneumonia) Status: Acute Post obstructive PNA - Laboratory Labs: 07/02/17 04:37 07/02/17 04:37 - Microbiology Microbiology 07/01/17 13:28 Bronch [place], Right Lower Lobe Gram Stain - Final 07/01/17 13:28 Bronch [place], Right Lower Lobe Bronchial Aspirate Culture - Final Normal Respiratory Tanesha 07/01/17 13:28 Bronchial Washing Acid Fast Bacilli Culture & Smear - Preliminary - Radiology Radiology: PROCEDURE: CT chest wo con: Encounter: Initial Comparison: Chest x-ray from yesterday Technique: Axial CT images were performed through the chest without intravenous contrast. Coronal and sagittal two-dimensional reformats. Automated Exposure Control and Iterative Reconstruction dose reducing techniques were utilized. Findings: Moderate emphysema. Dense consolidation of the right lower lobe with air bronchograms and bronchiectasis. Trace atelectasis in the dependent left lower lobe. No pneumothorax. No discrete pulmonary nodules or masses. Small right pleural effusion. The central airways show evidence of an endobronchial lesion occluding the right lower lobe bronchus just below the take off of the bronchus intermedius on axial image #29. This extends over a segment of approximately 1.4 cm craniocaudally measured on the sagittal plane reconstructions. No axillary adenopathy. There are enlarged right paratracheal lymph nodes. Senior Clinical Research Associate node on image #21 measures 1.2 cm in short axis. Additional node on image #28 measuring 1.2 cm in short axis. Heart size is normal. No pericardial effusion. Left-sided PICC line in place with the tip terminating in the lower SVC. The upper abdomen shows no acute findings. No lytic or blastic osseous lesions appreciated. Impression: Endobronchial lesion occluding the right lower lobe bronchi with postobstructive atelectasis and pneumonia. There is associated small right effusion. A neoplastic etiology is suspected given the degree of bronchiectasis present this suggests a long-standing process rather than acute obstruction due to a mucous plug. Mediastinal adenopathy could be metastatic or reactive. Bronchoscopy is recommended for further evaluation. . - Pathology Preliminary micro results at discharge 07/01/17 13:28 Acid Fast Bacilli Culture & Smear - Preliminary Bronchial Washing Microbiology 07/01/17 13:28 Bronch [place], Right Lower Lobe Gram Stain - Final 07/01/17 13:28 Bronch [place], Right Lower Lobe Bronchial Aspirate Culture - Final Normal Respiratory Tanesha 07/01/17 13:28 Bronchial Washing Acid Fast Bacilli Culture & Smear - Preliminary History of Present Illness HPI: Judit Kimball was accepted in a transfer from [facility] for CAP, COPD exacerbation. She was hospitalized there from 06/26-06/29. CXR showed opacity and collapse in the right base and possibly RML. She was treated with albuterol, pulmicort, IV levaquin x1 day, IV azithro, IV solu-medrol, doxycycline. An abdominal x-ray was unremarkable. A PICC line was inserted into her left upper arm. BC NGTD. On 06/29/17, Na was 136, K 3.6, CO2 27, BUN 16, Cr 0.8, WBC 17.6, hgb 10.2, hct 29, plt 292, d-dimer normal, TSH 0.32, UA neg, H. pylori screen neg. In May, B12 was 751, TSH 1.78. Judit started to feel sick with soreness on Wednesday06/22/17, then the next day she felt achy, fatigued, and thought she had the flu. She doesn't think she had a fever. She was coughing up ugly-looking phlegm. She denies sinus drainage/ congestion. She didn't have a sore throat initially but after breathing treatments it became sore. She denies feeling short of breath or having chest pain or palpitations. She does not use oxygen at home but was started on oxygen in [place]. No dizziness or syncope. She denies leg swelling. Her appetite has been decreased and on Wednesday she had "black coming out of my mouth and my rear" but hasn't had any hematemesis since then. She becomes nauseated with the smell of food. She had a small formed black-colored stool prior to leaving [place]. No problems urinating. She was transferred to [facility] for ongoing care. Objective Vital signs: Temperature 96.0 F L 07/03/17 07:00 Pulse Rate 116 H 07/03/17 10:45 Respiratory Rate 20 07/03/17 07:40 Blood Pressure 97/53 07/03/17 07:00 Pulse Oximetry 77 L 07/03/17 10:45 Height/Weight/BMI: Height 5 ft 1 in Weight 68.8 kg Body Mass Index 29.7 - Constitutional Present: no acute distress - Routine HEENT Exam Head: Present: normocephalic, atraumatic Eye: Present: EOMI, PERRL ENT: Present: mucous membranes moist - Routine Cardiovascular Exam Present: RRR, no murmur - Routine Abdominal Exam Present: soft, non distended, non tender - Routine Extremities Exam Present: edema. Absent: cyanosis, clubbing - Routine Skin Exam Present: intact, dry. Absent: erythema - Routine Neurological Exam Present: alert, oriented X3 - Routine Psychiatric Exam Present: normal affect Hospital Course This is a general summary of the patient's hospital course. For more details refer to the complete medical record. Hospital course: 06/29/17 19:13 Admitted as transfer from [place]. Dx: CAP, COPD exac, hematemesis and melena. Rocephin and zithromax were started; DuoNeb + Pulmicort ordered. Requiring O2 on admission. Monitor labs, respiratory status closely. 06/30/17 16:[address] chest - RLL endobronchial lesion - possible bronch with bx tomorrow + FOBT - hgb stable. Hold Prednisone. Elevated LFT's - follow 07/01/17 Bronch today. 3L O2. Hgb 10.5-->9.8 LFT's improved. Potassium 3.5 - 40mEq po given x1 07/02/17 Bronch results pending Hgb stable - gradual, slight decline Fever overnight - may add/change atbx Discharge Summary -Pt was transferred from OSH for pna not resolving on abx. Abx coverage was changed and pt was started on Rocephin and Azithro. CXR showed pleural effusion and heavy consolidation in the lower lobe so CT chest was done which showed right main bronchus mass. Bronch was done by and BAL and tissue biopsies were taken. Per report from , the entirety of the mass came out during bronch so the obstruction was relieved with the bronch. 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 Pt really wanted to go home for the holidays and so plan was made to discharge her over the weekend. Case was discussed with of oncology and he noted that since the obstruction was relieved, radiation of the lung was no longer needed right away. She could safely follow up and get her cancer staged as outpatient. Pt wanted to follow up in [place] but we were unable to contact anyone from their. Pt's pcp, , was called and the case was discussed with him. He noted that he will make sure pt gets seen by oncology in [place]. Will send pt out on Levaquin 7 additional days due to pt's abx allergies. Discussed case with as well and he agreed with discharge plan. Pt can follow up with pcp to determine if pna is improving and if abx need to be continued for any longer. Pt will be going home on 3L continuous Oxygen. Discharge Plan - Discharge Disposition Discharge Date: 07/03/17 Disposition: 01 Discharged Home, Self-Care *Condition: Stable Reason For Visit (Visit label in EMR): COPD due to pneumonia - Discharge Medications *Discharge Medications: New levoFLOXacin [Levaquin] 750 mg PO ACB 7 Days #7 tab Continue Gabapentin 300 mg PO TID APAP/Codeine 300/30 (#3) [Tylenol with Codeine #3 (300/30)] 2 tab PO Q4HPRN PRN PRN Reason: Pain Cholecalciferol (Vitamin D3) [Vitamin D3] 2 tab PO DAILY Estradiol [Estrace] 0.25 mg PO DAILY Albuterol HFA Inhaler [Ventolin Hfa 90 mcg/actuation] - Discharge Packet/Instructions *Diet: Regular *Activity: As tolerated *Expected Signs/Symptoms: mild shortness of breath, mild cough *Notify Physician if: Fever >101, severe shortness of breath *During Business Hours Contact: Primary care doctor *After Business Hours Contact: Urgent care or ER *Pending Lab/Results: Follow up w/Provider - Referrals/Follow Up - Patient Handouts - Dismissal Complete Discharge Instructions are:: Complete Physician Narrative - Narrative Attestation Narrative: Date: 07/03/17 Time: 9092
[2017-07-03 12:11] VITALS: BP 118/66; PULSE 104; TEMP 97.8
[2017-07-03 13:16] VITALS: RESP 16; O2SAT 94
--- NOTE | 2017-07-03 13:45 | Pulmonology Progress Note ---
Subjective Principal diagnosis: pna Interval history: Feels better. No respiratory distress. Mild cough with sputum. She is aware of cancer diagnosis and is planning to visit with oncology for an evaluation Exam Vital signs: Temperature 97.8 F 07/03/17 11:00 Pulse Rate 104 H 07/03/17 11:00 Respiratory Rate 16 07/03/17 13:00 Blood Pressure 118/66 07/03/17 11:00 Pulse Oximetry 94 07/03/17 13:00 - Constitutional no acute distress - Routine HEENT Exam Head: Present: normocephalic, atraumatic Eye: Absent: conjunctival icterus - Routine Neck Exam Present: supple - Routine Respiratory Exam Present: decreased breath sounds - Routine Cardiovascular Exam Present: RRR Assessment and Plan (1) Pneumonia Status: Acute Assessment and plan: post obstructive pneumonia due to distal right mainstem, RLL obstruction from endobronchial NSCLCA. Obstruction improved with bronchoscopic biopsies. Cultures non-diagnostic. Recommend discharge with Augmentin 875 BID for 10 days. Repeat CXR. I will plan to see in the clinic in the next 1-2 weeks. Current Visit: Yes (2) COPD (chronic obstructive pulmonary disease) Status: Acute Assessment and plan: recommend outpatient PFT and workup. Neb albuterol/iprat qid is appropriate treatment at this point Current Visit: Yes (3) Non-small cell cancer of right lung Status: Acute Assessment and plan: distal right mainstem bronchus with complete obstruction of RLL bronchus, improved after biopsies. FU with oncology for staging and treatment options. Unlikely a surgical candidate based on location of tumor, however CT/PET should be helpful. May also benefit from repeat bronchoscopy Current Visit: Yes - Assessment and Plan Abnormal CT RLL mass - per Bronch: polypoid structure completely obstructing the RLL bronchus Post obstructive pna COPD exacerbation Plan: Pt currently on O2 at 4L per [place] and tolerating, no O2 at home. Cont on BT's with pulmicort BID and a/a q6, prednisone 40mg. On azithro and rocephin for CAP , may benefit from levaquin for post obstructive pna. Afebrile, WBC improving, bronch cx's with prelim growth and GPC noted per stain, cont to follow. RLL bronchial mass noted, sent for Bx, if dismisses over the weekend will need to follow up OP for bronch results. Will need Ex Ox prior to discharge as she doesn 't have O2 at home. - Time Spent With Patient Total time spent is greater than 50% in coordination of care (as documented) at patient's floor/unit and/or counseling patient: 25 - 35 minutes
--- NOTE | 2017-07-04 09:59 | XRay Report ---
INDICATION: Pna PROCEDURE: CHEST 2-VIEWS UPRIGHT (PA & LAT) Encounter: Initial COMPARISON: June 30, 2017 FINDINGS: Left PICC line remains in place. Continued right pleural effusion with severe consolidation of the right lower lobe. Small left effusion is redemonstrated. Upper lung crain are clear. No pneumothorax. Heart size and mediastinal contours are stable. Impression: Stable appearance of the chest with bilateral pleural effusions and right lower lobe consolidation. .
== END 2017-07-03 15:10 | disposition home or self-care (01) | DRG 167 ==
LOC: MED 18:22
PROVIDERS: ADMIT Internal Medicine; ATTEND Internal Medicine